=== PATIENT | female | born 1970 | race Caucasian/White ===

== ENCOUNTER 2019-07-02 18:30 | Emergency (ER) | payer MEDICAID ==
[~2019-07-02] VITALS: Ht 172.7 cm; Wt 95.5 kg
[~2019-07-02 18:30] MED LIST: CLIN150C9 PO; FLUO-191 PO; MUPI22O TP; OMEP20 PO
[2019-07-02] MEDS ORDERED: BUPR-93 PO (19:15)
[2019-07-02] MEDS ORDERED: ALBU8HFA IH (19:15)
[2019-07-02] MEDS ORDERED: TOPI100T37 PO (19:15)
[2019-07-02] MEDS ORDERED: GABA-531 PO (19:15)
[2019-07-02] MEDS ORDERED: MELO-107 PO (19:15)
[2019-07-02] MEDS ORDERED: LORA-999 PO (19:15)
[2019-07-02] MEDS ORDERED: IBUP-2071 PO (19:15)
[2019-07-02] MEDS ORDERED: LEVO125 PO (19:15)
[2019-07-02] MEDS ORDERED: FAMO20 PO (19:15)
[2019-07-02] MEDS ORDERED: CETI10TA59 PO (19:15)
[2019-07-02] MEDS ORDERED: TRAZ-220 PO (19:15)
[2019-07-02] MEDS ORDERED: ALBU2TAB42 PO (19:15)
[2019-07-02] MEDS ORDERED: SUMA25TA9 PO (19:15)
[2019-07-02 21:24] LABS: BASOPHILS % (AUTO) 0.9 % (0.0-2.0); EOSINOPHILS % (AUTO) 7.7 % (1.0-6.0); HEMATOCRIT 38.2 % (36-46); HEMOGLOBIN 12.5 g/dL (12.0-16.0); LYMPHOCYTES # (AUTO) 2.5 K/uL (1.0-4.8); LYMPHOCYTES % (AUTO) 26.3 % (22.0-44.0); MEAN CORPUSCULAR HGB CONC 32.8 G/dL (31.0-37.0); MEAN CORPUSCULAR VOLUME 85 fL (80-100); MONOCYTES # (AUTO) 0.6 K/uL (0.1-1.0); MONOCYTES % (AUTO) 6.3 % (2.0-9.0); NEUTROPHILS # (AUTO) 5.5 K/uL (1.8-7.7); NEUTROPHILS % (AUTO) 58.8 % (40.0-70.0); PLATELET COUNT (AUTO) 303 K/uL (150-450); RED BLOOD CELL COUNT(AUTO) 4.47 MIL/uL (4.00-5.20); RED CELL DISTRIBUTION WIDTH 13.9 % (11.5-14.5)
[2019-07-02 21:40] LABS: ANION GAP 8 mmol/L (8-16); CARBON DIOXIDE 26 mmol/L (22-29); CHLORIDE 105 mmol/L (98-107); CREATININE 0.89 mg/dL (0.60-1.30); GLUCOSE,RANDOM 121 mg/dL (70-110); POTASSIUM 3.3 mmol/L (3.5-5.1); SODIUM SERUM 139 mmol/L (136-145); UREA NITROGEN, BLOOD 14 mg/dL (7-18)
[2019-07-02 21:41] LABS: CALCIUM, TOTAL 8.4 mg/dL (8.8-10.5); GLOMERULAR FILTR. RATE CALC > 60 mL/min (>60)
[2019-07-02 22:04] LABS: ALANINE AMINOTRANSFERASE 44 U/L (12-78); ALBUMIN 3.7 g/dL (3.4-5.0); ALKALINE PHOSPHATASE 98 U/L (46-116); ASPARTATE AMINOTRANSFERASE 37 U/L (15-37); BILIRUBIN,TOTAL 0.2 mg/dL (0.1-1.0); CREATINE KINASE, TOTAL ONLY 235 U/L (26-192); TOTAL PROTEIN, SERUM 6.9 g/dL (6.4-8.2)
[2019-07-02 22:07] LABS: B-TYPE NATRIURETIC PEPTIDE 23 pg/mL (0-100)
[2019-07-02 23:24] VITALS: BP 148/80
[2019-07-02 23:43] LABS: THYROID STIMULATING HORMONE 36.68 uIU/mL (0.36-3.74)
[2019-07-02] MEDS ORDERED: KETOROLAC TROMETHAMINE 30 MG/ML VIAL IVP ONE (23:45)
[2019-07-03] MEDS ORDERED: LEVOTHYROXINE SODIUM 125 MCG TABLET PO ONE
== END 2019-07-03 00:14 | disposition home or self-care (01) ==
LOC: EMS 18:31
DX: M19.072 Primary osteoarthritis, left ankle and foot (principal); M77.32 Calcaneal spur, left foot; M25.531 Pain in right wrist; R60.0 Localized edema; E03.9 Hypothyroidism, unspecified; K21.9 Gastro-esophageal reflux disease without esophagitis; F41.9 Anxiety disorder, unspecified; F32.9 Major depressive disorder, single episode, unspecified; F17.210 Nicotine dependence, cigarettes, uncomplicated; Z90.710 Acquired absence of both cervix and uterus; Z79.899 Other long term (current) drug therapy; Z88.8 Allergy status to other drugs, medicaments and biological substances; Z88.2 Allergy status to sulfonamides; Z98.51 Tubal ligation status; Z59.0 Homelessness
CPT/HCPCS: 29125; 36415; 71046; 73110; 73610; 80053; 82550; 83880; 84443; 85025; 93970; 96374; 99284; J1885; 29540